=== PATIENT | male | born 1995 | race Caucasian/White ===

== ENCOUNTER 2021-06-16 14:16 | Emergency (ER) | payer OTHER, SELFPAY ==
[2021-06-16 14:23] VITALS: BP 149/88; PULSE 88; RESP 12; TEMP 36.9; O2SAT 100
--- NOTE | 2021-06-16 14:37 | ED.URI ---
HPI - URI/Sore Throat General Chief Complaint: Upper Respiratory Infection Stated Complaint: SORE THROAT Time Seen by Provider: 06/16/21 14:37 Source: patient and RN notes reviewed Mode of arrival: ambulatory Limitations: no limitations History of Present Illness HPI Narrative: 26-year-old male presents with concern for exposure to strep throat. Reports his girlfriend was diagnosed with strep throat today, she began having symptoms yesterday. He reports he last saw her 5 days ago. He denies sore throat, body aches, fever, headache, nausea. MD elicited complaint: sore throat Related Data Home Medications Medication Instructions Recorded Confirmed No Home Medications 06/16/21 06/16/21 Allergies Allergy/AdvReac Type Severity Reaction Status Date / Time eggs Allergy Severe Swelling Uncoded 06/16/21 14:21 Review of Systems Review of Systems: CONSTITUTIONAL: Denies malaise, chills, sweats, or fever. EYES: Denies visual changes, redness, or discharge. ENT: Denies rhinorrhea, congestion, sinus pain, otalgia and sore throat. CARDIOVASCULAR: Denies chest pain, palpitations, or edema. RESPIRATORY: Denies cough. Denies dyspnea. GASTROINTESTINAL: Denies abdominal pain, nausea, vomiting, diarrhea SKIN: Denies rash or itching. MUSCULOSKELETAL: Denies myalgia. NEUROLOGIC: Denies headache. All systems reviewed & are unremarkable except as noted in HPI and below PMFSH Comments At time of signature, agree with nursing past medical, surgical, social and family history. There is no relevant family history pertinent to the presenting complaint Exam Narrative: GENERAL: Well-appearing, well-nourished, and in no acute distress. HEAD: Normocephalic, atraumatic. EYES: PERRLA, sclera clear ENT: Nares clear, turbinates pink, no rhinorrhea or epistaxis. Mucous membranes moist. TM pearly eid with sharp light reflex bilaterally; no tragal tenderness. Oropharynx without erythema or lesions. Tonsils not enlarged and without exudate. NECK: Supple. No lymphadenopathy. CHEST: No respiratory distress. Clear to auscultation. No bony deformities, no asymmetry. Speaks in full sentences. HEART: Regular rate and rhythm. No murmur heard. Normal peripheral pulses. SKIN: Warm, dry, no visible rash. NEURO: Alert and oriented x3. PSYCH: Normal mood and affect Course Course Emergency Course: Patient is aware of diagnosis, understands and agrees to treatment plan. Anticipatory guidance given. Patient agrees to follow-up as directed and is aware of reasons to seek care at the emergency department. Portions of this record may have been created with voice recognition software Vital Signs Vital signs: Vital Signs Temperature 98.5 F 06/16/21 14:23 Pulse Rate 88 06/16/21 14:23 Respiratory Rate 12 06/16/21 14:23 Blood Pressure 149/88 H 06/16/21 14:23 Pulse Oximetry 100 06/16/21 14:23 Temperature 98.5 F 06/16/21 14:23 Pulse Rate 88 06/16/21 14:23 Respiratory Rate 12 06/16/21 14:23 Blood Pressure 149/88 H 06/16/21 14:23 Pulse Oximetry 100 06/16/21 14:23 Reviewed. MDM - URI/Sore Throat MDM Narrative Medical decision making narrative: Differential diagnosis considered: [place] virus, strep pharyngitis, allergic rhinitis, upper respiratory tract infection, sinusitis, rhinosinusitis, nasopharyngitis. viral pharyngitis, otitis media, otitis externa, pneumonia, bronchitis, viral cough syndrome, viral syndrome, and influenza. Exam findings show no acute concerns or changes; patient is non-toxic appearing and is in no distress. Patient is appropriate for outpatient treatment and follow-up. Lab Data Attestation: I reviewed the patient's lab results. Critical Care Time Critical Care Time Critical Care Time: No Discharge Plan Discharge Clinical Impression: Strep throat exposure Patient Disposition: Home, Self-Care Condition: Stable Instructions: General Patient Instructions Additional Instructions: Your rapid stre
== END 2021-06-16 14:45 | disposition home or self-care (01) ==
PROVIDERS: Emergency Provider Nurse Practitioner
DX: J02.0 Streptococcal pharyngitis (principal)
CPT/HCPCS: 87081; 87880; 99213; G0463